=== PATIENT | female | born 1975 | race Caucasian/White ===

== ENCOUNTER 2016-12-22 15:48 | Inpatient (IN) | payer OTHER ==
--- NOTE | ~2016-12-22 | CT71 ---
[facility] A Service of [facility] RADIOLOGY TEXT RESULTS PATIENT: CYRIL RODRIGUEZ LOCATION: [facility] : [birth year] UNIT #: [id number] AGE: [address]: Cayden Monroe MD SEX: F ORDER DR: [id number] [facility]. [place], [place] [address] [id number] MR#: [id number] #: [id number] NAME: CYRIL RODRIGUEZ : 1975 SEX: F STUDY DATE/TIME: 12/22/2016 17:56 UNIT: CEDOF ROOM: [id number] STUDY DESCRIPTION: CT Head Wo Contrast Attending Physician: Cayden Monroe M.D. Ordering Physician: Jakub Albert M.D. Primary Care Physician: Primary Care Physician No MEDICAL IMAGING REPORT This report is preliminary unless electronic signature is present EXAM CT head without contrast DATE 12/22/2016 HISTORY 41-year-old female with headache since Tuesday, chest pain and shortness of breath. COMPARISON Noncontrast CT head 07/06/2008. FINDINGS This CT exam was performed with one or more of the following radiation dose reduction techniques: Automatic exposure control, adjustment of mA and/or kV according to patient size, and iterative reconstruction. No displaced calvarial fracture. Major paranasal sinuses and mastoid air cells appear clear. Skull base is attenuated by the patient's broad shoulders and body habitus. No acute intracranial hemorrhage, mass lesion, mass effect or midline shift is seen. Frias matter-white matter junction distinction appears preserved without evidence of acute or evolving infarct. IMPRESSION 1. No acute intracranial findings. Dictated by... Dot Nobles M.D. THIS IS AN ELECTRONICALLY VERIFIED REPORT [facility] A Service [facility] RADIOLOGY TEXT RESULTS PATIENT: CYRIL RODRIGUEZ LOCATION: [facility] : [birth year] UNIT #: [id number] AGE: [address]: Cayden Monroe MD SEX: F ORDER DR: Dot Nobles M.D. at 12/23/2016 11:57 AM DILIA/dulce TD: 12/23/2016 02:05 JOB #: [id number] MEDICAL IMAGING REPORT COPY
--- NOTE | ~2016-12-22 | HP ---
Unit #: [id number] #: [id number] Patient: CYRIL RODRIGUEZ [id number] [facility]. [place], [place] [address] [id number] MR#: [id number] NAME: CYRIL RODRIGUEZ ROOM: Age: 41 Sex: F Admission Date: 12/22/2016 : 1975 Attending Physician: Jakub Albert M.D. Primary Care Physician: Primary Care Physician No HISTORY AND PHYSICAL CHIEF COMPLAINT Trouble breathing. HISTORY OF PRESENT ILLNESS The patient is a 41-year-old female who presents to [facility] emergency department with complaint of trouble breathing. She states it has been going on and worsening for the past two days. She states that she initially was seen in the [facility] Emergency Department and was actually noted to have oxygen saturations in the 80s. She was swabbed for flu and discharged when it was negative. At this facility, she is also noted to have oxygen saturations in the 80s. She states that she has had some nausea and vomiting. Denies fevers. She states she feels much better with oxygen provided in the emergency department. She complains of mild cough that is nonproductive. PAST MEDICAL HISTORY 1. Hypertension. 2. x2. 3. Pulmonary embolism 2005. HOME MEDICATIONS None. ALLERGIES Demerol. SOCIAL HISTORY The patient states she stopped smoking 2 years ago. Denies alcohol and illicit drug use. FAMILY HISTORY Hypertension and coronary artery disease. REVIEW OF SYSTEMS A 10-point review of systems was obtained and negative except as per HPI. PHYSICAL EXAMINATION VITAL SIGNS: Temperature 97.4, pulse 85, blood pressure 193/99. GENERAL: This is a 41-year-old male in no acute distress who appears stated age. HEENT: Pupils equally round. Extraocular movements are intact. Mucous membranes are dry. NECK: Supple. No JVD, no lymphadenopathy. Unit #: [id number] #: [id number] Patient: CYRIL RODRIGUEZ HEART: Regular rate and rhythm, no murmurs, gallops or rubs. LUNGS: Bilateral rales in the bases. ABDOMEN: Nontender, nondistended. Positive bowel sounds. EXTREMITIES: No clubbing, cyanosis, or edema. Warm and dry. PSYCHIATRIC: Alert and oriented x3. Affect is appropriate. NEUROLOGIC: Cranial nerves II-XII are intact grossly. The patient moves all extremities equally and with purpose. SKIN: No rashes, bruises, or ulcers. MUSCULOSKELETAL: No muscle or joint pain, no muscle or joint swelling. DIAGNOSTIC STUDIES LABORATORY: White blood cell count 13.5, hemoglobin 10.7. Blood gas shows pO2 of 43 on room air. IMAGING: CT of the chest shows pneumonia. ASSESSMENT AND PLAN 1. Acute hypoxic respiratory failure. The patient is worked up for PE. CT PE protocol shows no pulmonary embolism; however, does show bilateral pneumonia. The patient was started on oxygen. 2. Community-acquired pneumonia. Started the patient on Rocephin and Zithromax, oxygen and albuterol mini nebs. 3. Morbid obesity. The patient may have some component of obesity hypoventilation syndrome and may benefit from sleep apnea testing as an outpatient. 4. Hypertension. I have started the patient on hydralazine 50 mg p.o. t.i.d. She states she does not take any medications regularly. 5. DVT prophylaxis. The patient was started on Lovenox. Dictated by Cayden Monroe M.D. MARCO A/kareem TD: 12/22/2016 20:06 JOB #: [id number] HISTORY AND PHYSICAL X Cayden Monroe MD HISTORY AND PHYSICAL
--- NOTE | ~2016-12-22 | CO ---
Unit #: [id number] #: [id number] Patient: CYRIL ARREOLA [id number] [place], [place] [address] [id number] MR#: [id number] NAME: YCRIL ARREOLA ROOM: 229 Age: 41 Sex: F Admission Date: 12/22/2016 : 1975 Attending Physician: Cayden Monroe M.D. Primary Care Physician: No Primary Care Physician CONSULTATION REPORT HISTORY OF PRESENT ILLNESS Ms. Arreola is a 41-year-old female we are asked to see for respiratory failure and pneumonia. Illness began over a week ago and she had generalized aches and pains and minimal cough. She also admitted to some nausea and vomiting and was seen at [facility] where she was told that she had a virus. Apparently, her flu swab was negative. She was noted to be hypoxemic according to admission note here. She presented back here with mild cough and increased shortness of breath. CT scan of the chest revealed no pulmonary emboli, did reveal multifocal ground glass infiltrates. Her white blood cell count was 13,500, hematocrit 35.1, and platelet count was normal. Arterial blood gases revealed a pH of 7.36, pCO2 of 54, pO2 of 43 on room air. BMP was unremarkable. BNP was 48. Influenza A and B were negative. She has been admitted, started on supplemental oxygen, started on DuoNeb and broad-spectrum antibiotics in the form of Rocephin and Zithromax. She denies any sick contacts. She has no unusual exposure history. She does have a history of DEANNE diagnosed in the early at [place] but has not been on CPAP for a long time. She has gained at least 200 pounds since that time. She stopped smoking about two years ago. PAST MEDICAL HISTORY 1. Hypertension. 2. Obstructive sleep apnea, not on CPAP, 3. Morbid obesity. 4. Question history of pulmonary emboli in 2005. PAST SURGICAL HISTORY x2. HOME MEDICATIONS None, has not seen a doctor in six years. ALLERGIES Demerol. FAMILY HISTORY Hypertension, coronary artery disease. SOCIAL HISTORY Stopped smoking two years ago. Smoked no more than a pack a day for 20 years. Denies alcohol or illicit drugs. REVIEW OF SYSTEMS CONSTITUTIONAL: Possibly some fever and chills. Unit #: [id number] #: [id number] Patient: CYRIL ARREOLA HEENT: Some sinus congestion. PULMONARY: As noted. CARDIAC: No chest pain. GASTROINTESTINAL: Some nausea, vomiting. GENITOURINARY: No hematuria, dysuria. ENDOCRINE: No pyuria, polydipsia. HEMATOLOGIC: No easy bruising, bleeding. SKIN: No rash. NEUROLOGIC: No unilateral weakness or numbness. No seizures. Does have a history of DEANNE, not on CPAP. PHYSICAL EXAMINATION VITAL SIGNS: Blood pressure is 143/67, pulse 93, respiratory rate 20, afebrile. HEENT: Normocephalic and atraumatic. Pupils equal, round, and reactive. Sclerae nonicteric. Nasal passages patent. Posterior pharynx crowded. Mallampati IV. NECK: Supple. Trachea midline. No cervical, supraclavicular lymphadenopathy. LUNGS: Reveal diminished breath sounds bilaterally. Fairly clear. CARDIAC: Regular rate and rhythm. Could not appreciate murmur, rub, or gallop. ABDOMEN: Nontender. Bowel sounds present. No hepatosplenomegaly. EXTREMITIES: Without clubbing, cyanosis, or edema. NEUROLOGIC: Awake, alert, oriented x3. Cranial nerves intact. Muscle strength symmetric bilaterally. PSYCHIATRIC: Affect calm. SKIN: Warm and dry. DIAGNOSTIC STUDIES LABORATORY: Laboratory studies are noted and reviewed. IMPRESSION 1. Multifocal infiltrates consistent with pneumonia, community-acquired pneumonia. 2. Acute hypoxemic hypercarbic respiratory failure with compensated respiratory acidosis. 3. Probable obesity hypoventilation syndrome. 4. History of obstructive sleep apnea, untreated since the early . 5. Morbid obesity. 6. Hypertension. PLAN 1. Will begin avaPs for obesity hypoventilation syndrome. 2. Will check respiratory virus panel. Agree with antibiotics to cover community-acquired pneumonia. 3. Will check procalcitonin level. 4. Will also check thyroid function studies to rule out hypothyroidism. 5. Agree with deep venous thrombosis prophylaxis. 6. We have discussed sleep apnea, obesity hypoventilation syndrome. 7. Will also check HIV test. Will make further recommendations pending this. 8. I have also discussed the possibility of bariatric surgery. She has already touched base with [facility] Department. Will make further recommendations pending this. Unit #: [id number] #: [id number] Patient: CYRIL ARREOLA JO Dictated by... Santo Berumen/ezra TD: 12/26/2016 16:02 JOB #: [id number] CONSULTATION REPORT X Carlos Doyle MD CONSULTATION REPORT
--- NOTE | ~2016-12-22 | CT16 ---
[facility] A Service of [facility] & [facility] RADIOLOGY TEXT RESULTS PATIENT: CYRIL RODRIGUEZ LOCATION: [facility] 229-01 : [birth year] UNIT #: [id number] AGE: [address]: Cayden Monroe MD SEX: F ORDER DR: [id number] [facility]. [place], [place] [address] [id number] I MR#: [id number] #: [id number] NAME: CYRIL RODRIGUEZ : 1975 SEX: F STUDY DATE/TIME: 12/22/2016 18:02 UNIT: CEDOF ROOM: [id number] STUDY DESCRIPTION: CT Angio Chest for PE Attending Physician: Cayden Monroe M.D. Ordering Physician: Jakub Albert M.D. Primary Care Physician: Primary Care Physician No MEDICAL IMAGING REPORT This report is preliminary unless electronic signature is present EXAM CT scan of the chest with contrast, 12/22/2016 HISTORY Chest pain and shortness of breath for 4 days, elevated D-dimer of 594, evaluate for pulmonary embolus. TECHNIQUE Spiral CT was performed through the chest following intravenous contrast administration using pulmonary embolus protocol. 3-D reconstructions of the chest were then performed following intravenous contrast administration. This CT exam was performed with one or more of the following radiation dose reduction techniques: Automatic exposure control, adjustment of mA and/or kV according to patient size, and iterative reconstruction. FINDINGS There is no CT evidence for pulmonary embolus. The heart is normal in size. There is no significant thoracic adenopathy. There are no pleural effusions. Lung windows demonstrate patchy, multifocal ground-glass infiltrates involving the upper and lower lobes bilaterally, characteristic of bilateral pneumonia. Images of the upper abdomen demonstrate fatty infiltration of the liver. There is a 2 cm low-density nodule on the right adrenal gland, which is indeterminate but probably represents an adenoma. IMPRESSION 1. No CT evidence for pulmonary embolus. 2. Patchy, multifocal ground-glass infiltrates involving the upper and lower lobes bilaterally characteristic of bilateral pneumonia. 3. Fatty infiltration of the liver. 4. 2-cm nodule on the right adrenal gland probably representing an [facility] A Service of [facility] & [facility] RADIOLOGY TEXT RESULTS PATIENT: CYRIL RODRIGUEZ LOCATION: [facility] 229-01 : [birth year] UNIT #: [id number] AGE: [address]: Cayden Monroe MD SEX: F ORDER DR: adenoma. Dictated by... Jadon Holland M.D. THIS IS AN ELECTRONICALLY VERIFIED REPORT Jadon Holland M.D. at 12/23/2016 2:16 PM KRT/psc TD: 12/23/2016 02:27 JOB #: [id number] MEDICAL IMAGING REPORT COPY
--- NOTE | ~2016-12-22 | DS ---
Unit #: [id number] #: [id number] Patient: CYRIL RODRIGUEZ [id number] [facility]. [place], [place] [address] [id number] I MR#: [id number] NAME: CYRIL RODRIGUEZ ROOM: 229 Age: 41 Sex: F Admission Date: 12/22/2016 : 1975 Discharge Date: 12/27/2016 Attending Physician: Meredith Thakkar M.D. Primary Care Physician: No Primary Care Physician DISCHARGE SUMMARY DIAGNOSES ON ADMISSION 1. Pneumonia. 2. Acute respiratory failure. DIAGNOSES ON DISCHARGE 1. Multifocal pneumonia. 2. Hypertension. 3. Moderate obesity. 4. Possible obstructive sleep apnea syndrome. 5. Mild left ventricular dysfunction with ejection fraction of 45% to 50%. CONSULTATION Dr. Jose Doyle in pulmonary consultation. DIAGNOSTIC STUDIES LABORATORY: The patient's ABG revealed on room air pO2 of 71. The patient's WBC is 10.8, hemoglobin 9.6, platelet count 311,000. The patient's creatinine is 0.8, sodium 138, potassium 4.6. HIV screen was negative. Sputum culture and sensitivity revealed normal respiratory poonam. TSH is 3.8. BNP is 48. Blood culture did not reveal any growth so far. Influenza A and B screen were negative. IMAGING: CT scan of chest revealed no evidence of PE. There was patchy multifocal glass-ground infiltrates involving upper and lower lobes bilaterally. CT scan of head did not reveal any acute findings. HOSPITAL COURSE A 41-year-old female presented to [facility] with shortness of air. Details are as per admission H and P. The patient was seen by Dr. Doyle in consultation. The patient was treated with oxygen and antibiotics. She responded well and is feeling much better. She had ABG done with pO2 of 70. Patient is feeling much better today and she is anxious and wants to go home. Therefore, we will discharge her. PHYSICAL EXAMINATION VITAL SIGNS: On physical examination, vital signs reveal temperature of 98.5. Pulse is 88 per minute, respiratory rate is 16 per minute, blood pressure is 163/67. GENERAL: The patient is morbidly obese. Unit #: [id number] #: [id number] Patient: RODRIGUEZ,BRIAN HEENT: Revealed no conjunctival congestion. Sclerae nonicteric. NECK: Supple. Trachea is central. RESPIRATORY: Revealed breath sounds equal bilaterally. There are no wheezes or crackles. HEART: Regular rate and rhythm. S1, S2. ABDOMEN: Soft, nontender. Bowel sounds are present in all four quadrants. NEUROLOGIC: The patient is alert to person, place, and time. Power is 5/5 bilaterally. SKIN: Warm and dry. RECOMMENDATIONS ON DISCHARGE Condition is stable. Activity is as tolerated. MEDICATIONS 1. Omnicef 300 mg p.o. b.i.d. for one week. 2. Tylenol 650 mg p.o. q.6 hours p.r.n. 3. Hydralazine 50 mg p.o. t.i.d. FOLLOWUP 1. The patient is advised to follow up with primary care physician in one week and with Dr. Jose Doyle in two to four weeks for possible obstructive sleep apnea syndrome. 2. The patient is advised to call primary care physician or go to ER if her condition changes. 3. The patient stated that she is going to establish Dr. Leary as her primary care physician. Dictated by... Santo Dozier/ezra TD: 12/27/2016 14:51 JOB #: [id number] DISCHARGE SUMMARY X Meredith Thakkar MD DISCHARGE SUMMARY
--- NOTE | ~2016-12-22 | BMI ---
[facility] Nutrition Therapy DATE: 12/23/16 Patient: CYRIL RODRIGUEZ Physician: CONSTANZA Address: [address] [place] [address] Room/Bed: [address] [place] [address], Zip: [place] [address] Admit Date: 12/22/16 Date of : [birth year] Height: 5 7 Weight: 430 195.04 HIGH BMI NOTE: DX: 41 y/o female admitted with PNA ANTHROPOMETRICS: Ht: 67", Wt: 429 lbs, BMI: 67 DIET: Regular INTERVENTION: 1. Restricted diet, 2. Meds/fluids per MD RECOMMENDATIONS: Consider changing diet to healthy heart to promote a gradual weight loss towards a healthy BMI range. Respectfully, Anna Sandoval RD, LD Food and Nutrition[facility] cc: client file
--- NOTE | ~2016-12-22 | EKG ---
PATIENT: CYRIL RODRIGUEZ UNIT #: [id number] Ventricular Rate: 94 BPM Atrial Rate: 94 BPM P-R Interval: 194 ms QRS Duration: 96 ms Q-T Interval: 368 ms QTC Calculation(Bezet): 460 ms P Wadsworth: 70 degrees Calculated R Wadsworth: 35 degrees Calculated T Wadsworth: 62 degrees Diagnosis Line: Normal sinus rhythm Diagnosis Line: Normal ECG Diagnosis Line: No previous ECGs available Diagnosis Line: Confirmed by DOMITILA VERDUZCO MD ([id number]) on 12/23/2016 Diagnosis Line: 5:41:11 PM INTERPRETING MD: DAX BRAND
[2016-12-22 15:29] LABS: BASOPHIL# 0.1 X10e3 (0-0.3); BASOPHIL% 0.5 % (0-2.5); EOSINOPHIL# 0.1 X10e3 (0-0.7); EOSINOPHIL% 0.6 % (0.0-7.0); HEMATOCRIT 35.1 % (35.0-45.0); HEMOGLOBIN 10.7 gm/dL (12.0-16.0); LYMPHOCYTE# 1.6 X10e3 (1.0-3.5); LYMPHOCYTE% 12.2 % (17.0-45.0); MEAN CELL VOLUME 76.5 FL (83-96); MEAN CORPUSCULAR HEMOGLOBIN 23.4 PG (28-34); MEAN CORPUSCULAR HGB CONC 30.5 g/dL (30-36); MEAN PLATELET VOLUME 8.8 FL (6.5-11.5); MONOCYTE# 0.7 X10e3 (0-1.0); NEUTROPHIL% 81.7 % (40-75); PLATELET COUNT 328 X10e3 (140-420); RED BLOOD COUNT 4.59 X10e (3.90-5.30); RED CELL DISTRIBUTION WIDTH 17.7 % (11.0-15.5); WHITE BLOOD COUNT 13.5 X10e3 (4.0-10.5)
[2016-12-22 15:39] LABS: DIFF IND NO
[2016-12-22 15:42] LABS: ARTERIAL BLD GAS O2 SATURATION 77.6 % (90.0-100.0); ARTERIAL BLOOD GAS HCO3 30.7 mmol/L; ARTERIAL BLOOD GAS pH 7.363 (7.350-7.450)
[2016-12-22 15:43] LABS: ARTERIAL BLOOD GAS ART SITE RIGHT BRACHIAL; ARTERIAL BLOOD GAS FIO2 0.21 %; ARTERIAL BLOOD GAS PCO2 54.1 mmHg (35.0-45.0); ARTERIAL BLOOD GAS PO2 43.7 mmHg (80.0-100); ARTERIAL DRAW? YES
[2016-12-22 15:46] LABS: PARTIAL THROMBOPLASTIN TIME 27.5 SECONDS (23.5-31.3); PROTHROMBIN TIME (PATIENT) 10.7 SECONDS (9.6-11.5)
[~2016-12-22 15:48] MED LIST: ANTIVERT PO; BACTRIM DS TABL1 TAB PO; COUMADIN PO; FAMOTIDINE; FOLIC ACID; KEFLEX PO; NIFEREX-150150 MG PO; PRENATAL MULTIV1 TA1; VICODIN 5/500 T1 TAB PO
[2016-12-22 16:00] LABS: ALBUMIN SERUM 3.8 g/dL (3.5-5.0); ALKALINE PHOSPHATASE 54 U/L (32-92); ALT (SGPT) 57 U/L (10-40); AST (SGOT) 47 U/L (10-42); BILIRUBIN, DIRECT 0.2 mg/dL (0.0-0.2); BILIRUBIN,INDIRECT 0.4 mg/dL (0.0-0.9); BILIRUBIN,TOTAL 0.6 mg/dL (0.2-2.0); BLOOD UREA NITROGEN 9 mg/dL (9-23); BUN/CREATININE RATIO 12.85; CALCIUM SERUM 8.6 mg/dL (8.4-10.2); CARBON DIOXIDE 30 mmol/L (22-31); CHLORIDE 98 mmol/L (100-111); CREATININE SERUM 0.7 mg/dL (0.6-1.4); GLOM FILT RATE Estimated ABOVE60 mL/min (>60); GLUCOSE FASTING 96 mg/dL (70-110); POTASSIUM 4.1 mmol/L (3.5-5.1); PROTEIN TOTAL SERUM 7.8 g/dL (6.0-8.3); SODIUM 137 mmol/L (135-145)
[2016-12-22 18:05] LABS: INFLUENZA A NEG (NEG)
[2016-12-22 18:06] LABS: INFLUENZA B NEG (NEG)
[2016-12-22 19:56] LABS: POC - CKMB 1.7 ng/mL (0.0-7.9); POC - TROPONIN <0.05 ng/mL (<=0.05)
[2016-12-23 05:25] LABS: BASOPHIL# 0.1 X10e3 (0-0.3); BASOPHIL% 0.6 % (0-2.5); EOSINOPHIL# 0.2 X10e3 (0-0.7); EOSINOPHIL% 1.4 % (0.0-7.0); HEMATOCRIT 34.4 % (35.0-45.0); HEMOGLOBIN 10.6 gm/dL (12.0-16.0); LYMPHOCYTE# 1.7 X10e3 (1.0-3.5); LYMPHOCYTE% 11.2 % (17.0-45.0); MEAN CELL VOLUME 76.6 FL (83-96); MEAN CORPUSCULAR HEMOGLOBIN 23.5 PG (28-34); MEAN CORPUSCULAR HGB CONC 30.7 g/dL (30-36); MEAN PLATELET VOLUME 8.5 FL (6.5-11.5); MONOCYTE% 6.6 % (3.0-12.0); NEUTROPHIL# 12.1 X10e3 (1.5-7.1); NEUTROPHIL% 80.2 % (40-75); PLATELET COUNT 313 X10e3 (140-420); RED BLOOD COUNT 4.49 X10e (3.90-5.30); RED CELL DISTRIBUTION WIDTH 17.6 % (11.0-15.5)
[2016-12-23 05:27] LABS: DIFF IND NO
[2016-12-23 05:56] LABS: BLOOD UREA NITROGEN 8 mg/dL (9-23); CALCIUM SERUM 8.7 mg/dL (8.4-10.2); CARBON DIOXIDE 29 mmol/L (22-31); CHLORIDE 100 mmol/L (100-111); CREATININE SERUM 0.8 mg/dL (0.6-1.4); GLOM FILT RATE Estimated ABOVE60 mL/min (>60); GLUCOSE FASTING 104 mg/dL (70-110); POTASSIUM 3.7 mmol/L (3.5-5.1); SODIUM 138 mmol/L (135-145)
[2016-12-24 05:43] LABS: HEMATOCRIT 32.2 % (35.0-45.0); HEMOGLOBIN 9.7 gm/dL (12.0-16.0); MEAN CELL VOLUME 76.2 FL (83-96); MEAN CORPUSCULAR HGB CONC 30.2 g/dL (30-36); MEAN PLATELET VOLUME 8.9 FL (6.5-11.5); RED BLOOD COUNT 4.22 X10e (3.90-5.30); RED CELL DISTRIBUTION WIDTH 17.6 % (11.0-15.5); WHITE BLOOD COUNT 11.7 X10e3 (4.0-10.5)
[2016-12-24 06:02] LABS: BLOOD UREA NITROGEN 8 mg/dL (9-23); BUN/CREATININE RATIO 11.42; CALCIUM SERUM 8.6 mg/dL (8.4-10.2); CARBON DIOXIDE 30 mmol/L (22-31); CHLORIDE 99 mmol/L (100-111); CREATININE SERUM 0.7 mg/dL (0.6-1.4); GLOM FILT RATE Estimated ABOVE60 mL/min (>60); GLUCOSE FASTING 97 mg/dL (70-110); MAGNESIUM 1.9 mg/dL (1.6-3.0); SODIUM 136 mmol/L (135-145)
[2016-12-25 05:40] LABS: HEMATOCRIT 31.3 % (35.0-45.0); HEMOGLOBIN 9.6 gm/dL (12.0-16.0); MEAN CELL VOLUME 76.8 FL (83-96); MEAN CORPUSCULAR HEMOGLOBIN 23.5 PG (28-34); MEAN CORPUSCULAR HGB CONC 30.6 g/dL (30-36); MEAN PLATELET VOLUME 8.8 FL (6.5-11.5); RED BLOOD COUNT 4.08 X10e (3.90-5.30); RED CELL DISTRIBUTION WIDTH 17.8 % (11.0-15.5); WHITE BLOOD COUNT 10.8 X10e3 (4.0-10.5)
[2016-12-25 06:23] LABS: BLOOD UREA NITROGEN 11 mg/dL (9-23); BUN/CREATININE RATIO 13.75; CALCIUM SERUM 8.9 mg/dL (8.4-10.2); CARBON DIOXIDE 28 mmol/L (22-31); CHLORIDE 101 mmol/L (100-111); CREATININE SERUM 0.8 mg/dL (0.6-1.4); GLOM FILT RATE Estimated ABOVE60 mL/min (>60); GLUCOSE FASTING 79 mg/dL (70-110); POTASSIUM 4.6 mmol/L (3.5-5.1); SODIUM 138 mmol/L (135-145)
[2016-12-27 12:08] LABS: ARTERIAL BLD GAS O2 SATURATION 93.5 % (90.0-100.0); ARTERIAL BLOOD GAS HCO3 25.7 mmol/L; ARTERIAL BLOOD GAS MET HB 0.9 %sat (0.0-2.0); ARTERIAL BLOOD GAS pH 7.438 (7.350-7.450)
[2016-12-27 12:10] LABS: ARTERIAL BLOOD GAS ALLEN TEST NORMAL; ARTERIAL BLOOD GAS ART SITE RIGHT RADIAL; ARTERIAL BLOOD GAS DELIVERY ROOM AIR; ARTERIAL BLOOD GAS PO2 71.6 mmHg (80.0-100); ARTERIAL DRAW? YES
[2016-12-27] MEDS ORDERED: PAIN RELIEF650 MG PO (14:48)
[2016-12-27] MEDS ORDERED: OMNICEF300 M1 PO (14:48)
[2016-12-27] MEDS ORDERED: HYDRALAZINE HCL50 MG PO (14:49)
== END 2016-12-27 16:10 | disposition home or self-care (01) | DRG 193 ==
LOC: CED 15:48 → CEDOF 19:47 → C2A 12-23 07:46
PROVIDERS: Emergency Medicine; Internal Medicine; Physician Assistant Medical
PROC: B246YZZ Ultrasonography of Right and Left Heart using Other Contrast (ICD-10-PCS; principal; 2016-12-23)
DX: J18.9 Pneumonia, unspecified organism (principal); J96.01 Acute respiratory failure with hypoxia; Z68.44 Body mass index [BMI] 60.0-69.9, adult; Z88.8 Allergy status to other drugs, medicaments and biological substances; E66.01 Morbid (severe) obesity due to excess calories; I10 Essential (primary) hypertension; G47.33 Obstructive sleep apnea (adult) (pediatric); Z86.711 Personal history of pulmonary embolism; Z87.891 Personal history of nicotine dependence; Z82.49 Family history of ischemic heart disease and other diseases of the circulatory system
CPT/HCPCS: 36415; 36600; 70450; 71275; 80048; 80076; 82308; 82553; 82803; 83735; 83880; 84443; 84484; 84703; 85025; 85027; 85379; 85610; 85730; 87040; 87070; 87205; 87633; 87804; 87806; 93005; 93306; 94640; 94660; 94760; 96374; 96375; 99291; C8928; J0456; J0461; J0696; J1250; J1650; J1885; J1956; J2405; J2550; Q9957; Q9967